=== PATIENT | female | born 1930 | race Caucasian/White ===

== ENCOUNTER 2016-05-24 19:06 | Inpatient (IN) | payer MEDICARE ==
[~2016-05-24] VITALS: Ht 162.5 cm; Wt 54.4 kg
--- NOTE | ~2016-05-24 | PN ---
[place], [place] PROGRESS NOTE NAME: JELLY RAND UNIT #: [id number] ROOM: 309 DOCTOR: CECILLE LIU MD BIRTHDATE: [birth year] DATE: 05/29/16 CHIEF COMPLAINT: "Good morning, thank you." SUMMARY OF THE VISIT: The patient was interviewed in the dining area where she sat reclining in a Crystal chair being fed by one of the nursing students on the unit. As I approached, she stopped eating and engaged in very superficial, but pleasant conversation. She smiled readily. She voiced no complaints, stating that she slept well and is hungry and is ready to eat her breakfast. There was no mood lability noted, no agitation. She remains pleasantly confused in most instances. MENTAL STATUS: She is alert and oriented to person, possibly place, not time. Mood does seem to be fairly euthymic. Affect does seem to be fairly appropriate. There is sparsity of thought and she lacks spontaneity. Her responses tend to be very short and simple, most often 1-2 words. There are no overt auditory or visual hallucinations, delusions or paranoia. There is no hypomania or wilfredo. PLAN: At this point, I will maximize her Namenda from 15 mg a day to its maximum dose of 20 mg a day. A valproic acid level obtained this morning is high 107.8; however, I see no signs of toxicity, so I will continue to monitor and recheck her level again in a day or two. We will monitor for risk, benefits. Engage in individual and tomas milieu activities, returning to [facility] in [place] when stable. CECILLE LIU MD CM:PNTRANS [id number] [id number] CECILLE LIU MD 05/31/161810 BESS [email or web address].[email or web address]
--- NOTE | ~2016-05-24 | PR ---
[place], [place] PROGRESS NOTE NAME: JELLY RAND UNIT #: [id number] ROOM: 309 DOCTOR: CHERELLE ESCOBEDO BIRTHDATE: [birth year] DOS: 06/03/2016 SUMMARY OF VISIT: The patient was assessed in the dining room where she was resting comfortably. It should be noted after I had dictated on her yesterday and was actually in the unit, the patient was able to get out of her Crystal chair with tray and was found standing at the nurses' station door, so she is still quite ____ at times. She did well, was redirected. I did receive a phone call later in the afternoon where her Ativan p.r.n. had fallen away and they asked if I could recorder it because she was becoming agitated and anxious. Once she received the p.r.n. Ativan, she was much more calm today. MENTAL STATUS: Alert and oriented to person, I do not think place or time. Affect is quite flat. She is kind of spacey now. There are no overt signs of auditory or visual hallucinations, delusions or paranoia. Nurses last night were able to get her nighttime dose of medications in her, no such like this morning so far. PLAN: I did decrease her Depakote ____ dosage for last night. Nurses did talk to the hospitalist. At this point in time, they do not want to put her on any kind of IV therapy. They just want to watch her, continue to try to redirect her. We will try to engage in individual and tomas milieu therapy, at this time, has not been that successful. Goal over the next 24 hours is just trying to keep fluids in her and get her medications in her. CLAIRE ESCOBEDO CNP CM:PNALEXANDRA [id number] CHERELLE ESCOBEDO 06/03/16 1153 interface
--- NOTE | ~2016-05-24 | DS ---
[place], [place] DISCHARGE SUMMARY [id number] UN[facility] #: [id number] ROOM: 309 DOCTOR: CECILLE LIU MD BIRTHDATE: [birth year] DOS: 06/05/2016 CHIEF COMPLAINT: "I have been here a day and a week." HISTORY OF PRESENT ILLNESS: This is an 86-year-old white female who resides at the [facility] in [place], [place]. The patient presented here on an involuntary basis due to significant alteration in mental status. The patient has become increasingly more agitated there, walking into cohn and has sustained approximately 9 falls since February. The patient has been increasingly more confused and easily agitated with both verbal and physical aggressiveness. She has been increasingly more resistive to care, and it has been very difficult to redirect her. She is admitted now to rule out organic factors, to stabilize on medication, ultimately returning back to [facility] when stable. PAST MEDICAL HISTORY: Remarkable for coronary artery disease, hyperlipidemia, hypertension, COPD, and Alzheimer dementia. ALLERGIES: She has allergies to OPIOIDS, TYLENOL, DILAUDID, LATEX, PREDNISONE, LYRICA and TRAMADOL. SUMMARY OF HOSPITAL COURSE: The patient was admitted to the unit, where she was started on Exelon patch 4.6 mg a day. This was rapidly increased to its maximum dose of 13.3 mg a day, Namenda 5 mg a day was added to augment the effectiveness of the cholinesterase inhibitor and it too was brought to its maximum dose of 10 mg b.i.d., Depakote was added to decrease her mood lability and impulsivity. The dose was ultimately stabilized at 250 mg twice daily. With this, Depakote, she did become much more redirectable and was not as easily as agitated. Additionally, Remeron was discontinued in lieu of Trintellix. The dose started at 10 and increased to its maximum dose of 20 mg a day with good results. With this combination of medication, the patient became much more pleasant and cooperative. She no longer was running into cohn, nor where she verbally or physically aggressive towards others. She tolerated the medication regimen well without any sedation, somnolence, extrapyramidal symptoms, tardive dyskinesia or other side effects. MENTAL STATUS AT DISCHARGE: The patient was alert and oriented to person, place, but not necessarily time. Mood was euthymic. Affect appropriate. Her responses tended to be short and simple and at times inappropriate, but she was much more redirectable. There was no erica wilfredo or psychosis noted. Short-term memory was exceptionally poor, otherwise she was intact. FINAL DIAGNOSES: Major depression, recurrent with psychotic features; impulse control disorder and Alzheimer dementia. PLAN: The patient is to return to [facility] in [place]. I will follow her upon her return there. All of her prescriptions have been Escribed to [facility]. [place], [place] DISCHARGE SUMMARY NAME: JELLY RAND UNIT #: [id number] ROOM: 309 DOCTOR: CECILLE LIU MD BIRTHDATE: [birth year] CECILLE LIU MD CM:DISCHARG [id number] 5 CECILLE LIU MD 06/05/1656 interface
--- NOTE | ~2016-05-24 | CON ---
[place], [place] REPORT OF CONSULTATION NAME: JELLY RAND UNIT #: [id number] ROOM: 309 DOCTOR: VALENTINA TONY ED.D (AYAN) BIRTHDATE: [birth year] DOS: 05/28/2016 HISTORY OF PRESENT ILLNESS: The patient is an 86-year-old female referred by Dr. Johnson for competency evaluation. At the present time, this patient is on the [facility] at [facility]. She states she has 2 daughters. She is presently a resident at [facility] in [place], [place]. PAST MEDICAL HISTORY: Pertinent for major neurocognitive disorder -- Alzheimer's disease, hypertension, COPD, coronary artery disease, hyperlipidemia, and coronary artery bypass graft. MEDICATIONS: Include Exelon patch, Namenda, Depakote, Trintellix, simvastatin, aspirin, Meloxicam and albuterol. SOCIAL HISTORY: She does not have any significant past substance abuse issues whatsoever. PHYSICAL EXAMINATION: GENERAL: This patient was awake, alert and oriented only to person. She had no idea where she was. She had no idea of the year and she did not have any idea where she lived. Her short and long-term memory are markedly impaired and she is clearly not competent to make informed healthcare decisions. An emergency guardianship form was completed for Dr. Johnson to sign first thing tomorrow morning. I did complete the guardianship application for probate court in [place], [place]. DIAGNOSIS: Major neurocognitive disorder -- Alzheimer's disease. RECOMMENDATIONS: This patient should have her guardianship established. Thank you very much for this consult. VALENTINA TONY ED.D CM:CONSTR:REPORT OF CONSULTATION 1555 05/29/16 0303 interface CECILLE JOHNSON MD
--- NOTE | ~2016-05-24 | PN ---
[place], [place] PROGRESS NOTE NAME: JELLY RAND UNIT #: [id number] ROOM: 309 DOCTOR: CHERELLE ESCOBEDO BIRTHDATE: [birth year] DATE: 05/29/16 SUMMARY OF VISIT: The patient was somewhat sedate. She did receive some p.r.n. Ativan last night due to severe sundowning. She has generally poor appetite and poor sleep as well, but in particular around 4:00 p.m., her sundowning starts ramping up per nursing. MENTAL STATUS: Alert and oriented to self only. Again, very sedated, she did get a p.r.n. Ativan. PLAN: Discussed with Dr. Johnson. She is on a maximum dose of the Namenda and the Exelon. I am going to add an afternoon dose, a 4 p.m. dose of Vistaril. The Ativan does sedate her, but does not really addressing her behaviors and is poor in its effectiveness, so we are going to try the Vistaril in the afternoon. I am going to order a valproic acid level with regards to the Depakote and then see how she responds to the Vistaril and then we can go from there. CHERELLE ESCOBEDO CM:PNTRANS 0813 [id number] CHERELLE ESCOBEDO 06/04/16 1510 BESS [email or web address].JAZMINER
--- NOTE | ~2016-05-24 | PN ---
[place], [place] PROGRESS NOTE NAME: JELLY RAND UNIT #: [id number] ROOM: 309 DOCTOR: CHERELLE ESCOBEDO BIRTHDATE: [birth year] DATE: 05/29/16 SUMMARY OF VISIT: The patient was somewhat sedate. She did receive some p.r.n. Ativan last night due to severe sundowning. She has generally poor appetite and poor sleep as well, but in particular around 4:00 p.m., her sundowning starts ramping up per nursing. MENTAL STATUS: Alert and oriented to self only. Again, very sedated, she did get a p.r.n. Ativan. PLAN: Discussed with Dr. Johnson. She is on a maximum dose of the Namenda and the Exelon. I am going to add an afternoon dose, a 4 p.m. dose of Vistaril. The Ativan does sedate her, but does not really addressing her behaviors and is poor in its effectiveness, so we are going to try the Vistaril in the afternoon. I am going to order a valproic acid level with regards to the Depakote and then see how she responds to the Vistaril and then we can go from there. CHERELLE ESCOBEDO CM:PNTRANS 2 2 CHERELLE ESCOBEDO 05/31/16 1748 BESS [email or web address].[email or web address]
--- NOTE | ~2016-05-24 | PR ---
[place], [place] PROGRESS NOTE NAME: JELLY RAND UNIT #: [id number] ROOM: 309 DOCTOR: CECILLE LIU MD BIRTHDATE: [birth year] DOS: 05/27/2016 CHIEF COMPLAINT: "Good morning." SUMMARY OF THE VISIT: The patient was interviewed as she sat in a Crystal chair in the dining area. She was smiling brightly as I approached and engaged in very superficial conversation. At times, her responses remained confused and disjointed. She smiled however, and was very pleasant overall. The patient sitting next to her did mention that she noticed that she ate a good deal of her breakfast and seems to be in good spirits this morning. MENTAL STATUS: She is alert and oriented to self only. Mood does seem to be trending towards euthymia. Affect is more appropriate. She remains pleasantly confused. I see no hypomania or wilfredo. No auditory or visual hallucinations, delusions or paranoia. Short-term memory is exceedingly poor. PLAN: I will continue the Xanax taper and lower her to 0.25 mg daily with a plan to discontinue this soon. I will maximize Exelon patch from 9.5-13.3 mg daily in order to attempt to get the best benefits of improving or maintaining ADLs, behavior and cognition. I will increase the Trintellix from 10 to 20 mg at bedtime to combat the depression, anxiety and also improve concentration and cognition. Engage in individual and tomas milieu activity, returning to the least restrictive environment when stable. CECILLE LIU MD CM:PNTRANS [id number] CECILLE LIU MD 05/27/162038 interface
--- NOTE | ~2016-05-24 | PR ---
[place], [place] PROGRESS NOTE NAME: JELLY RAND UNIT #: [id number] ROOM: 309 DOCTOR: CHERELLE ESCOBEDO BIRTHDATE: [birth year] DOS: 06/02/2016 CHIEF COMPLAINT: The patient was nonverbal. SUMMARY OF VISIT: The patient was assessed in the dining room where she was in a Crystal chair. She is very somnolent, lethargic. Nurses notes that she has not had any a.m. or p.m. meds and she is not taking anything p.o. at all for the last day or two. MENTAL STATUS: Alert to name only. PLAN: I have discussed with nursing. We are going to talk to the hospitalist and see if we can get some IV fluids and she had a bump in her BUN from her labs yesterday, see if we can help fluidate her a little bit. Her valproic acid level was high, but she was not showing any signs of it at the time of any toxicity and honestly in the last 24 hours she has not had any, but I am going to go ahead and decrease the nighttime dose if we get her to take some medications, but in the meantime, I will plan on holding the Depakote at least another day before restarting it, in case this is contributing to her lethargy. Then, I will have the hospitalist to evaluate her for does she have a UTI or does she just need fluids and we will go from there. CLAIRE ESCOBEDO CNP CM:PNTRANS 1110 [id number] CHERELLE ESCOBEDO 06/02/16 1221 interface
--- NOTE | ~2016-05-24 | WRIGHTHP ---
[place], [place] PATIENT HISTORY AND PHYSICAL EXAM NAME: JELLY RAND UNIT #: [id number] ROOM: 309 DOCTOR: CECILLE LIU MD BIRTHDATE: [birth year] DOS: 05/25/2016 PSYCHIATRIC EVALUATION CHIEF COMPLAINT: "I have been here a day and a week." HISTORY OF PRESENT ILLNESS: This is an 86-year-old white female who resides at [facility] in [place], [place]. The patient presents here on an involuntary basis due to altered mental status. The patient has been increasingly more agitated and has been walking into cohn and has sustained approximately 9 falls since February. She has been noted to be increasingly more confused and increasingly more agitated with verbal and physical aggressiveness. Currently, she is very disjointed in her thinking. She believes she is on a plane headed to [place], she believes that her 10-year-old child has just , many of her comments are very bizarre and disjointed. PAST MEDICAL HISTORY: Remarkable for coronary artery disease, hyperlipidemia, hypertension, COPD. ALLERGIES: She lists allergies to OPIOIDS, TYLENOL, DILAUDID, LATEX, PREDNISONE, LYRICA, TRAMADOL. MENTAL STATUS: The patient is alert and oriented to self only. She is very confused and disjointed in her thinking. Responses are short, often inappropriate. At times, her responses are totally inconsistent with the question being asked of her. She was pleasant, however, and she smiled readily. There was no agitation noted this morning. There is no wilfredo or hypomania. There is some delusional system noted. She processes very slowly and her short term memory is extremely poor. DIAGNOSIS: Brief psychotic disorder, rule out major depression with psychotic features, rule out impulse control disorder. PLAN: I have already increased her Exelon patch from 4.6 mg daily to 9.5 mg daily. I will augment this with Namenda 5 mg a day and gradually target the dose to be increased to its maximum dose to 20 during her stay. I will add Depakote 250 mg in the morning and 500 mg at night to decrease some of the impulsivity and to augment the effectiveness of the antidepressant. I did discontinue her Remeron in lieu of Trintellix 10 mg at bedtime. We will monitor for risk, benefit. We will engage in individual and tomas milieu activity, returning to [facility] when psychiatrically stable. [place], [place] PATIENT HISTORY AND PHYSICAL EXAM NAME: JELLY RAND UNIT #: [id number] ROOM: 309 DOCTOR: CECILLE LIU MD BIRTHDATE: [birth year] CECILLE LIU MD CM:HISPHYS:PATIENT HISTORY AND PHYSICAL EXAMINATION [id number] CECILLE LIU MD 05/25/16 0823 interface
--- NOTE | ~2016-05-24 | PR ---
[place], [place] PROGRESS NOTE NAME: JELLY RAND UNIT #: [id number] ROOM: 309 DOCTOR: CECILLE LIU MD BIRTHDATE: [birth year] DOS: 05/26/2016 CHIEF COMPLAINT: "Morning." SUMMARY OF THE VISIT: The patient was interviewed as she reclined and was sleeping initially in a Crystal chair in the dining area. Upon approach and gently touching her shoulder and calling her name, she did open her eyes and engaged in brief superficial conversation, but then closed her eyes and went back to sleep. Nurses report that she had a poor evening and was very restless throughout the night, tossing and turning and attempting to get up or safety awareness is very poor, so they needed to redirect her frequently. She continues to be very anxious and fretful throughout the day as well requiring again constant supervision and redirection. MENTAL STATUS: She is alert and oriented to self only. Mood does seem to be still somewhat depressed with anxious overtones. There was no wilfredo or hypomania, and no psychotic symptoms are noted. She processes information very slowly, and her responses are slow and simple. PLAN: I will go ahead and increase Namenda from 5 mg a day to 5 mg twice daily as I targeted 10 mg twice daily dose. Maintain Exelon at 9.5 ultimately planning to increase it to the 13.3 level. Screening examinations upon admission showed her to have a low vitamin D level, so we will go ahead and supplement with vitamin D 50,000 international units weekly. We will continue to engage in individual and tomas milieu activity with the ultimate plan to return home or to the least restrictive environment when stable. CECILLE LIU MD CM:PNTRANS [id number] CECILLE LIU MD 05/26/16 0948 interface
--- NOTE | ~2016-05-24 | PR ---
[place], [place] PROGRESS NOTE NAME: JELLY RAND UNIT #: [id number] ROOM: 309 DOCTOR: CECILLE LIU MD BIRTHDATE: [birth year] DOS: 06/05/2016 CHIEF COMPLAINT: "Good morning honey, is it breakfast." SUMMARY OF THE VISIT: The patient was interviewed as she was resting quietly in bed. She awoke easily and engaged in brief superficial conversation, but was pleasant, in doing so. She offered no complaints, reporting that she slept well and is ready to get up for breakfast. There was no agitation or aggression. Likewise, there were no side effects noted from the medications themselves. MENTAL STATUS: She is alert and oriented to self, possibly placed and that she may realize she is in the hospital, but it is unclear. She is certainly not oriented towards time. Mood does seem to be strongly trending towards euthymia and affect is much more appropriate. Responses remained short and simple and at times inappropriate. There is no erica wilfredo or psychosis noted. Short term memory is exceedingly poor. PLAN: I will maintain the current psychotropic regimen. Continue to engage in individual and tomas milieu activity. The ultimate plan at present is to return back then to [facility] when psychiatrically stable. CECILLE LIU MD CM:PNTRANS 0732 0848 CECILLE LIU MD 06/05/16 0850 interface
--- NOTE | ~2016-05-24 | PR ---
[place], [place] PROGRESS NOTE NAME: JELLY RAND UNIT #: [id number] ROOM: 309 DOCTOR: CECILLE LIU MD BIRTHDATE: [birth year] DOS: 06/04/2016 CHIEF COMPLAINT: "Good morning, how are you." SUMMARY OF THE VISIT: The patient was interviewed as she rested quietly in bed. She awoke easily and engaged in very superficial, but pleasant conversation. There was no agitation or mood lability noted. There was likewise no spontaneity. She, however, did answer questions appropriately. Of note is that she does seem to have an extremely dry oral mucosa. Nurses are aware to the fact that the patient has had some electrolyte abnormalities and had been watching her fluid intake very consistently. MENTAL STATUS: She is alert and oriented to self. Unclear if she realizes she is in the hospital and she is certainly not oriented to time. Mood is fairly euthymic. Affect is appropriate. There are no symptoms of wilfredo or hypomania. Likewise, there are no auditory or visual hallucinations. No delusions, no paranoia. Short-term memory is exceedingly poor, otherwise she is intact. PLAN: I will maintain her current psychotropic regimen. I will check a BNP this morning to ensure that her electrolytes are not and treat accordingly. We will engage in individual and tomas milieu activity, returning then to [facility] when psychiatrically stable. CECILLE LIU MD CM:PNTRANS 0827 0942 CECILLE LIU MD 06/04/16 0943 interface
--- NOTE | ~2016-05-24 | PR ---
[place], [place] PROGRESS NOTE NAME: JELLY RAND UNIT #: [id number] ROOM: 309 DOCTOR: CECILLE LIU MD BIRTHDATE: [birth year] DOS: 05/28/2016 CHIEF COMPLAINT: "Good morning." SUMMARY OF THE VISIT: The patient was interviewed as she rested quietly in bed. She laid in bed and did not attempt to turn over and make eye contact with me; however, she did answer most of my early questions with short superficial responses. Later, she did not respond at all. She was not agitated in any way, but just did seem to be somewhat disinterested. Nurses report that she continues to have periods of worsening agitation, more so in the late afternoon and evening consistent with owning behavior. MENTAL STATUS: She is alert and oriented to self. Unclear if she realizes she is in the hospital and she is certainly not oriented to time. Mood for the most part during this interview was fairly euthymic and she was bright and fairly pleasant. There is no symptom suggestive of hypomania or wilfredo. There was no overt auditory or visual hallucinations. No delusions were voiced. No paranoia was present. Short-term memory was exceedingly poor. PLAN: I will go ahead and finally discontinue the Xanax as I have been gradually tapering this. I will increase Namenda from 5 mg twice a day to 5 mg in the morning and 10 mg at night with a target dose of 20 mg total in a day. I will check a valproic acid level in the a.m. to ensure that it is therapeutic. We will continue to engage her in individual and tomas milieu activity discharging her to the least restrictive environment when stable. CECILLE LIU MD CM:PNTRANS 2 CECILLE LIU MD 05/28/16 0859 interface
--- NOTE | ~2016-05-24 | PR ---
[place], [place] PROGRESS NOTE NAME: JELLY RAND UNIT #: [id number] ROOM: 309 DOCTOR: CECILLE LIU MD BIRTHDATE: [birth year] DOS: 06/01/2016 INTERVAL NOTE CHIEF COMPLAINT: "Oh, good morning. Thank you for stopping." SUMMARY OF THE VISIT: The patient was interviewed in the dining room where she was sitting in a Crystal chair. She was resting at first, but awoke easily as I approached and engaged readily in very superficial conversation that was bright and pleasant. There was no spontaneity noted, but on a positive note, she was able to answer simple questions relatively appropriate. There was no agitation or aggression. There was no mood lability noted. MENTAL STATUS: She remains alert and oriented to person, possibly place, but certainly not time. Mood does seem to be strongly trending towards euthymia and affect is much more appropriate. There are no symptoms that are suggestive of wilfredo or hypomania. There are no overt auditory or visual hallucinations. No delusions are present. No paranoia is present. She does process slowly and her short-term memory is exceedingly poor. PLAN: Her valproic acid level is slightly elevated at 107.4, but I see no signs suggestive of valproic acid toxicity. The medicine does seem to be helping with her mood lability and nurses do report that she slept much better last night with the current medication regimen and does seem calmer this morning. I see no sedation or somnolence, so I will go ahead and maintain the current drug regimen. Continue to engage her in individual and tomas milieu activity with the ultimate plan to return back to [facility] when psychiatrically stable. CECILLE LIU MD CM:PNTRANS 0743 1004 CECILLE LIU MD 06/01/16 1004 interface
--- NOTE | ~2016-05-24 | PN ---
[place], [place] PROGRESS NOTE NAME: JELLY RAND UNIT #: [id number] ROOM: 309 DOCTOR: CECILLE LIU MD BIRTHDATE: [birth year] DATE: 05/29/16 CHIEF COMPLAINT: "Good morning, thank you." SUMMARY OF THE VISIT: The patient was interviewed in the dining area where she sat reclining in a Crystal chair being fed by one of the nursing students on the unit. As I approached, she stopped eating and engaged in very superficial, but pleasant conversation. She smiled readily. She voiced no complaints, stating that she slept well and is hungry and is ready to eat her breakfast. There was no mood lability noted, no agitation. She remains pleasantly confused in most instances. MENTAL STATUS: She is alert and oriented to person, possibly place, not time. Mood does seem to be fairly euthymic. Affect does seem to be fairly appropriate. There is sparsity of thought and she lacks spontaneity. Her responses tend to be very short and simple, most often 1-2 words. There are no overt auditory or visual hallucinations, delusions or paranoia. There is no hypomania or wilfredo. PLAN: At this point, I will maximize her Namenda from 15 mg a day to its maximum dose of 20 mg a day. A valproic acid level obtained this morning is high 107.8; however, I see no signs of toxicity, so I will continue to monitor and recheck her level again in a day or two. We will monitor for risk, benefits. Engage in individual and tomas milieu activities, returning to [facility] in [place] when stable. CECILLE LIU MD CM:PNTRANS [id number] CECILLE LIU MD 06/04/16 1546 [email or web address]
--- NOTE | ~2016-05-24 | PR ---
[place], [place] PROGRESS NOTE NAME: JELLY RAND UNIT #: [id number] ROOM: 309 DOCTOR: CHERELLE ESCOBEDO BIRTHDATE: [birth year] DOS: 05/31/2016 SUMMARY OF VISIT: The patient was assessed in the dining room where a psychiatric nursing assistant was attempting to feed her, she was quite sedate. She did require p.r.n. Ativan late last night because of behaviors. Nurses noted that the afternoon dose of the Vistaril that I added was effective, but then her behavior started up towards bedtime. I will keep the afternoon dose, the 4 p.m. dose of Vistaril and add p.m. dose of Vistaril to see if we can cut down on the p.r.n. usage and still allow her to be a little bit more awake during the early mornings. MENTAL STATUS: Alert and oriented to self only. No overt auditory or visual hallucinations, still grossly psychotic during her . PLAN: Again, I am going to keep the 4:00 p.m. Vistaril dose. I will add bedtime dose of Vistaril. I will keep all her other medications where they are at. I did order a valproic acid level, it came back at 107.4, so I will adjust her Depakote down and go from there. CLAIRE ESCOBEDO CNP CM:PNTRANS [id number] CHERELLE ESCOBEDO 05/31/16 1043 [id number]
[2016-05-24] MEDS ORDERED: XANAX0.5 MG PO (21:16)
[2016-05-24] MEDS ORDERED: KLOR-CON M2020 ME1 PO (21:16)
[2016-05-24] MEDS ORDERED: Albuterol Sulfat3 M2 INH (21:18)
[2016-05-24] MEDS ORDERED: ZOCOR40 MG PO (21:19)
[2016-05-24] MEDS ORDERED: COREG6.25 MG PO (21:19)
[2016-05-24] MEDS ORDERED: Hydralazine Hyd25 MG PO (21:21)
[2016-05-24] MEDS ORDERED: EXELON4.6 MG/24 TD (21:23)
[2016-05-24] MEDS ORDERED: LISINOPRIL40 MG PO (21:24)
[2016-05-24] MEDS ORDERED: MOBIC7.5 MG PO (21:25)
[2016-05-24] MEDS ORDERED: REMERON15 M2 PO (21:25)
[2016-05-24] MEDS ORDERED: ASPIR LOW81 MG PO (21:29)
[2016-05-24] MEDS ORDERED: GEODON20 M1 IM (21:29)
[2016-05-24 23:40] VITALS: BP 236/96
[2016-05-25] VITALS (8 sets, daily range): BP systolic 112–236; BP diastolic 60–96
[2016-05-25 06:50] LABS: BASO % 0.5 % (0.0-1.0); EOS # 0.2 10*3/uL (0.0-0.4); EOS % 2.9 % (1.0-4.0); HEMATOCRIT 39.9 % (37.0-47.0); HEMOGLOBIN 13.2 g/dl (12.0-16.0); LYMPH # 1.7 10*3/uL (1.3-4.4); LYMPH % 29.1 % (27.0-41.0); MEAN CELL VOLUME 95.7 fl (81.0-99.0); MEAN CORPUSCULAR HGB 31.7 pg (27.0-31.0); MEAN CORPUSCULAR HGB CONC 33.1 g/dl (33.0-37.0); MEAN PLATELET VOLUME 12.8 fl (9.6-12.3); MONO # 0.4 10*3/uL (0.1-1.0); MONO % 7.4 % (3.0-9.0); NEUT # 3.6 10*3/uL (2.3-7.9); NEUT % 59.9 % (47.0-73.0); PLATELET COUNT AUTOMATED 150 10*3/uL (130-400); RED BLOOD COUNT 4.17 10*6/uL (4.10-5.10); RED CELL DISTRI WIDTH 12.9 % (0-14.5)
[2016-05-25 06:59] LABS: HEMOGLOBIN A1c 5.4 % (4.8-5.6)
[2016-05-25 07:12] LABS: ALBUMIN 3.7 gm/dl (3.1-4.5); ALKALINE PHOSPHATASE 87 U/L (45-117); BILIRUBIN, TOTAL 0.5 mg/dl (0.2-1.0); BUN 11 mg/dl (7-24); CARBON DIOXIDE 30 mmol/L (21-32); CHLORIDE 107 mmol/L (98-107); CHOLESTEROL 145 mg/dL (<200); EST GLOM FILT AFRICAN AMERICAN > 60 ml/min; GLUCOSE 89 mg/dL (65-99); HDL CHOLESTEROL 48 mg/dl (40-60); LDL CHOLESTEROL 68 mg/dL (9-159); POTASSIUM 4.3 mmol/L (3.5-5.1); SGOT/AST 24 IU/L (3-35); SGPT/ALT 12 U/L (12-78); SODIUM 146 mmol/L (136-145); TOTAL PROTEIN 7.2 gm/dL (6.4-8.2); TRIGLYCERIDES 145 mg/dl (<150); VLDL CHOLESTEROL 29 mg/dL (6-40)
[2016-05-25 08:26] LABS: FOLIC ACID 7.16 ng/mL (>5.38); VITAMIN D, 25-HYDROXY 27.8 ng/mL (30-100)
[2016-05-26 08:11] VITALS: BP 151/55
[2016-05-26 19:23] VITALS: BP 137/51
[2016-05-27 07:41] VITALS: BP 134/52
[2016-05-27 20:28] VITALS: BP 137/85
[2016-05-28 07:20] VITALS: BP 132/67
[2016-05-28 20:00] VITALS: BP 176/60
[2016-05-29 07:54] VITALS: BP 146/82
[2016-05-29 20:00] VITALS: BP 182/90
[2016-05-29 22:52] VITALS: BP 126/68
[2016-05-30 07:50] VITALS: BP 136/63
[2016-05-30 19:52] VITALS: BP 127/70
[2016-05-31 07:35] VITALS: BP 144/73
[2016-05-31 20:00] VITALS: BP 125/85
[2016-06-01 08:00] VITALS: BP 134/57
[2016-06-01 12:58] LABS: BUN 32 mg/dl (7-24); CARBON DIOXIDE 30 mmol/L (21-32); CHLORIDE 108 mmol/L (98-107); EST GLOM FILT AFRICAN AMERICAN > 60 ml/min; GLUCOSE 105 mg/dL (65-99); SODIUM 145 mmol/L (136-145)
[2016-06-01 20:00] VITALS: BP 133/88
[2016-06-02 07:37] VITALS: BP 141/52
[2016-06-02 21:44] VITALS: BP 138/62
[2016-06-03 07:49] VITALS: BP 144/74
[2016-06-03 19:58] VITALS: BP 144/74
[2016-06-04 07:48] VITALS: BP 119/61
[2016-06-04 09:40] LABS: BUN 27 mg/dl (7-24); CARBON DIOXIDE 28 mmol/L (21-32); CHLORIDE 107 mmol/L (98-107); EST GLOM FILT AFRICAN AMERICAN > 60 ml/min; GLUCOSE 149 mg/dL (65-99); POTASSIUM 3.8 mmol/L (3.5-5.1); SODIUM 145 mmol/L (136-145)
[2016-06-04 19:46] VITALS: BP 121/53
[2016-06-05] MEDS ORDERED: DIVALPROEX SOD125 M1 PO ×2 (07:57)
[2016-06-05] MEDS ORDERED: EXELON13.3 MG/21 T (07:57)
[2016-06-05] MEDS ORDERED: VITAMIN D50000 I3 PO (07:57)
[2016-06-05] MEDS ORDERED: HYDROXYZINE PAM25 M1 PO ×2 (07:57)
[2016-06-05] MEDS ORDERED: BRIN20TA PO (07:57)
[2016-06-05] MEDS ORDERED: MEMANTINE HCL10 MG PO (07:57)
[2016-06-05 08:00] VITALS: BP 142/74
== END 2016-06-05 11:47 | disposition other institution (70) | DRG 885 ==
LOC: 3N 19:06
PROVIDERS: Internal Medicine; Psychiatry & Neurology Psychiatry
DX: F33.3 Major depressive disorder, recurrent, severe with psychotic symptoms (principal); G30.1 Alzheimer's disease with late onset; J44.9 Chronic obstructive pulmonary disease, unspecified; F02.80 Dementia in other diseases classified elsewhere, unspecified severity, without behavioral disturbance, psychotic disturbance, mood disturbance, and anxiety; F23 Brief psychotic disorder; F01.50 Vascular dementia, unspecified severity, without behavioral disturbance, psychotic disturbance, mood disturbance, and anxiety; I25.10 Atherosclerotic heart disease of native coronary artery without angina pectoris; E78.5 Hyperlipidemia, unspecified; E89.0 Postprocedural hypothyroidism; I10 Essential (primary) hypertension; F63.9 Impulse disorder, unspecified; E78.00 Pure hypercholesterolemia, unspecified; Z88.5 Allergy status to narcotic agent; Z88.8 Allergy status to other drugs, medicaments and biological substances; Z91.040 Latex allergy status; Z95.1 Presence of aortocoronary bypass graft; Z90.710 Acquired absence of both cervix and uterus; Z88.6 Allergy status to analgesic agent; Z79.82 Long term (current) use of aspirin; Z79.899 Other long term (current) drug therapy